=== PATIENT | male | born 1975 | race Caucasian/White ===

== ENCOUNTER 2017-01-27 05:16 | Emergency (ER) | payer BC, SELFPAY | END 2017-01-27 07:52 | disposition home or self-care (01) | PROVIDERS: Emergency Provider Emergency Medicine; Family Provider Family Medicine; Visit Provider Emergency Medicine | DX: R10.11 Right upper quadrant pain (principal); Z90.49 Acquired absence of other specified parts of digestive tract; Z87.891 Personal history of nicotine dependence | CPT/HCPCS: 71275; 74177; 80053; 80305; 81001; 82150; 83690; 85025; 87086; 96360; 99283 ==

== ENCOUNTER 2017-02-01 17:26 | Emergency (ER) | payer BC, SELFPAY | END 2017-02-01 18:17 | disposition left against medical advice (07) | PROVIDERS: Emergency Provider Nurse Practitioner Family; Family Provider Family Medicine; Visit Provider Nurse Practitioner Family | DX: Z53.29 Procedure and treatment not carried out because of patient's decision for other reasons (principal) | CPT/HCPCS: 99211 ==

== ENCOUNTER → 2017-12-01 08:59 | Outpatient (CLI) | payer BC, SELFPAY ==
--- NOTE | 2017-12-01 09:05 | NVE_ITS ---
Venous Exam Indications: 729.5 Pain in limb. IMPRESSIONS 1. There is no evidence of significant Reflux. 2. No evidence of deep or superficial vein thrombosis involving the left lower extremity Left lower extremity venous duplex evaluation. Doppler flow study including spectral analysis, color and ring scale imaging. Location: Vascular laboratory. Patient status: Outpatient. CRITICAL FINDINGS - Reported to: Marlen - Read back and verified. - 12/01/17 - 1030 - None Tables: Venous flow and imaging: + +-------+ + Location Overall Flow properties + +-------+ + Left common femoral Patent Normal phasicity; spontaneous; normal augmentation; compressible + +-------+ + Left saphenofemoral junction Patent Compressible + +-------+ + Left profunda femoral Patent Compressible + +-------+ + Left femoral Patent Normal phasicity; spontaneous; normal augmentation; compressible + +-------+ + Left greater saphenous Patent Normal phasicity; spontaneous; normal augmentation; compressible + +-------+ + Left popliteal Patent Normal phasicity; spontaneous; normal augmentation; compressible + +-------+ + Left posterior tibial Patent Compressible + +-------+ + Left peroneal Patent Compressible + +-------+ + Left gastrocnemius Patent Compressible + +-------+ + Left soleal Patent Compressible + +-------+ + (Report amended ) Electronically signed by: Igor Baig [id number]
== END ==
PROVIDERS: Family Provider Family Medicine; PCP Family Medicine; Visit Provider Nurse Practitioner Family
DX: M79.605 Pain in left leg (principal)
CPT/HCPCS: 93971

== ENCOUNTER → 2019-07-26 12:21 | Outpatient (CLI) | payer BC, SELFPAY ==
--- NOTE | 2019-07-26 12:29 | XR_ITS ---
PROCEDURE: XR RIBS RT MIN 3V W CXR1V CLINICAL INDICATION: RT RIB PAIN Right-sided chest pain COMPARISON: CTAC CTA-CHEST from 01/27/2017 FINDINGS: Multiple views of the right ribs show no obvious fracture. No lytic or blastic change. Consider follow-up in 7-[address] with 3D reformats if pain persists Frontal view of the chest shows no acute finding IMPRESSION: No acute findings. Dictated by: Igor Baig MD 07/26/2019 13:11 Electronically signed by Igor Baig MD in [facility] 07/26/2019 13:11
== END ==
PROVIDERS: PCP Family Medicine; Visit Provider Family Medicine
DX: R07.81 Pleurodynia (principal)
CPT/HCPCS: 71101

== ENCOUNTER → 2020-03-17 14:30 | Outpatient (CLI) | payer BC, SELFPAY ==
--- NOTE | 2020-03-17 14:38 | XR_ITS ---
PROCEDURE: XR FOOT LT MIN 3V CLINICAL INDICATION: LT FOOT INJURY,PAIN COMPARISON: No exams were available for comparison FINDINGS: No fracture or dislocation. No lytic or blastic change. There is normal mineralization. The joint spaces are well-preserved. No significant degenerative/arthritic changes. No erosive changes evident. Other findings:None. IMPRESSION: No acute findings. Dictated by: Igor Baig MD 03/17/2020 15:12 Igor Baig MD in [facility] 03/17/2020 15:12
== END ==
PROVIDERS: PCP Family Medicine; Visit Provider Nurse Practitioner Family
DX: M79.672 Pain in left foot (principal); S99.922A Unspecified injury of left foot, initial encounter
CPT/HCPCS: 73630

== ENCOUNTER → 2021-02-07 08:19 | Outpatient (CLI) | payer BC, SELFPAY ==
--- NOTE | 2021-02-07 08:25 | US_ITS ---
PROCEDURE: US ABDOMEN LIMITED CLINICAL INDICATION: RUQ PAIN,FATTY LIVER COMPARISON: US GB US GALLBLADDER (ABD LTD) from 01/10/[address] ABD PELVIS W/ CONTRAST from 01/27/2017 FINDINGS: PANCREAS: Unremarkable. No obvious mass or abnormal fluid collection. No ductal dilatation LIVER: Diffuse increased echogenicity of the liver with poor through transmission of sound consistent with hepatic steatosis. No focal liver lesion demonstrated. There is appropriate direction of blood flow within non dilated portal vein. RIGHT KIDNEY: Unremarkable. Normal size and echogenicity. No hydronephrosis GALLBLADDER: Status post cholecystectomy. Common bile duct is normal at 3 mm. IMPRESSION: Fatty liver. Status post cholecystectomy. Otherwise negative Dictated by: Igor Baig MD 02/07/2021 13:08 Igor Baig MD in [facility] 02/07/2021 13:08
== END ==
PROVIDERS: PCP Family Medicine; Visit Provider Nurse Practitioner Family
DX: R10.11 Right upper quadrant pain (principal); K76.0 Fatty (change of) liver, not elsewhere classified
CPT/HCPCS: 76705

== ENCOUNTER → 2021-03-20 08:01 | Outpatient (CLI) | payer BC, SELFPAY ==
[2021-03-20 08:41] LABS: Basophils # 0.1 K/mm3 (0-0.2); Basophils % 2.2 % (0.1-2.0); Eosinophils # 0.1 K/mm3 (0.0-0.4); Eosinophils % 2.7 % (0.1-12.0); Hematocrit 48.5 % (42.0-52.0); Lymphocytes % 39.6 % (10-50); Mean Corpuscular HGB Conc 32.9 g/dL (31.8-35.4); Mean Corpuscular Hemoglobin 30.7 pg (27.0-31.2); Mean Corpuscular Volume 93.5 fl (80-94); Mean Platelet Volume 10.1 fl (7.4-10.4); Monocytes # 0.3 K/mm3 (0.1-1.0); Monocytes % 5.2 % (1.7-9.3); Neutrophils # 2.5 K/mm3 (1.8-7.8); Neutrophils % 50.4 % (37.0-80.0); Platelet Count 195 K/mm3 (142-424); Red Blood Count 5.19 M/mm3 (4.60-6.20); Red Cell Distribution Width 13.8 % (11.5-17.5); White Blood Count 4.9 K/mm3 (4.8-10.8)
[2021-03-20 09:44] LABS: Chloride 101 mmol/L (98-107); Sodium 137 mmol/L (136-145)
[2021-03-20 09:47] LABS: Alanine Aminotransferase 33 U/L (12-78); Alkaline Phosphatase 43 U/L (38-126); Aspartate Amino Transferase 32 U/L (17-59); Bilirubin,Total 1.1 mg/dl (0.2-1.3); Blood Urea Nitrogen 17 mg/dl (9-20); Calcium 9.6 mg/dl (8.4-10.2); Carbon Dioxide 31 mmol/L (22.0-30.0); Estimated Glomerular Filt Rate 90 ml/min (>60); GFR (African American) 109 ML/MIN (>60); Glucose 93 mg/dl (74-100)
[2021-03-20 10:07] LABS: Anion Gap 9.8 mEq/L (5-15); Potassium 4.8 mmoL/L (3.5-5.1)
[2021-03-20 10:09] LABS: Albumin Level 4.8 g/dl (3.5-5.0); Albumin/Globulin Ratio 2.3 (1.1-1.8); Globulin 2.1 g/dL (1.3-3.2); Total Protein,Serum 6.9 g/dl (6.3-8.2)
[2021-03-22 23:07] LABS: ALT (SGPT) P5P 36 IU/L (0-55); AST (SGOT) P5P 26 IU/L (0-40); Alpha 2-Macroglobulins, Qn 112 mg/dL (110-276); Apolipoprotein A-1 117 mg/dL (101-178); Bilirubin, Total 0.8 mg/dL (0.0-1.2); Cholesterol, Total 133 mg/dL (100-199); Fibrosis Score 0.26 (0.00-0.21); Fibrosis Stage F0-F1 (.); GGT 13 IU/L (0-65); Glucose 94 mg/dL (65-99); Haptoglobin 22 mg/dL (23-355); Triglycerides 165 mg/dL (0-149)
== END ==
PROVIDERS: PCP Family Medicine; Visit Provider Nurse Practitioner Family
DX: K76.0 Fatty (change of) liver, not elsewhere classified (principal)
CPT/HCPCS: 36415; 80053; 85025

== ENCOUNTER → 2021-06-11 16:21 | Outpatient (CLI) | payer BC, SELFPAY ==
[2021-06-11 18:06] LABS: Alanine Aminotransferase 33 U/L (12-78); Albumin Level 4.6 g/dl (3.5-5.0); Alkaline Phosphatase 49 U/L (38-126); Aspartate Amino Transferase 62 U/L (17-59); Bilirubin,Indirect 1.1 mg/dL (0.0-0.9); Bilirubin,Total 1.1 mg/dl (0.2-1.3); Bilirubin,Unconjugated 1.1 mg/dL (0.0-1.1); Total Protein,Serum 6.8 g/dl (6.3-8.2)
== END ==
PROVIDERS: Visit Provider Nurse Practitioner Family
DX: K76.0 Fatty (change of) liver, not elsewhere classified (principal)
CPT/HCPCS: 36415; 80076

== ENCOUNTER → 2022-01-01 08:29 | Outpatient (CLI) | payer BC, SELFPAY ==
[2022-01-01 10:24] LABS: Alanine Aminotransferase 45 U/L (12-78); Albumin Level 4.3 g/dl (3.5-5.0); Alkaline Phosphatase 52 U/L (38-126); Aspartate Amino Transferase 62 U/L (17-59); Bilirubin,Direct 0.1 mg/dl (0.0-0.4); Bilirubin,Indirect 0.7 mg/dL (0.0-0.9); Bilirubin,Total 0.8 mg/dl (0.2-1.3); Bilirubin,Unconjugated 0.7 mg/dL (0.0-1.1); Total Protein,Serum 6.6 g/dl (6.3-8.2)
== END ==
PROVIDERS: PCP Internal Medicine Adolescent Medicine; Visit Provider Nurse Practitioner Family
DX: K76.0 Fatty (change of) liver, not elsewhere classified (principal)
CPT/HCPCS: 36415; 80076

== ENCOUNTER → 2022-06-07 07:54 | Outpatient (CLI) | payer BC, SELFPAY ==
[2022-06-07 08:57] LABS: Alanine Aminotransferase 26 U/L (12-78); Albumin Level 4.3 g/dl (3.5-5.0); Alkaline Phosphatase 44 U/L (38-126); Aspartate Amino Transferase 27 U/L (17-59); Bilirubin,Indirect 0.7 mg/dL (0.0-0.9); Bilirubin,Total 0.7 mg/dl (0.2-1.3); Bilirubin,Unconjugated 0.8 mg/dL (0.0-1.1); Total Protein,Serum 6.5 g/dl (6.3-8.2)
== END ==
PROVIDERS: PCP Internal Medicine Adolescent Medicine; Visit Provider Nurse Practitioner Family
DX: K76.0 Fatty (change of) liver, not elsewhere classified (principal)
CPT/HCPCS: 36415; 80076

== ENCOUNTER 2023-06-05 07:09 | Outpatient (CLI) | payer BC, SELFPAY ==
[2023-06-05 08:11] LABS: Alanine Aminotransferase 24 U/L (12-78); Albumin Level 4.2 g/dl (3.5-5.0); Alkaline Phosphatase 43 U/L (38-126); Aspartate Amino Transferase 25 U/L (17-59); Bilirubin,Direct 0.1 mg/dl (0.0-0.4); Bilirubin,Indirect 0.8 mg/dL (0.0-0.9); Bilirubin,Total 0.9 mg/dl (0.2-1.3); Bilirubin,Unconjugated 0.7 mg/dL (0.0-1.1); Total Protein,Serum 6.4 g/dl (6.3-8.2)
== END 2023-06-05 23:59 | disposition home or self-care (01) ==
LOC: LAB 07:09
PROVIDERS: PCP Internal Medicine Adolescent Medicine; Visit Provider Nurse Practitioner Family
DX: K76.0 Fatty (change of) liver, not elsewhere classified (principal); Z12.11 Encounter for screening for malignant neoplasm of colon
CPT/HCPCS: 36415; 80076

== ENCOUNTER 2024-05-11 13:32 | Emergency (ER) | payer OTHER, SELFPAY ==
--- NOTE | 2024-05-11 13:39 | XR_ITS ---
FINAL REPORT CLINICAL HISTORY: Fall on to knees COMPARISON: None FINDINGS: LEFT KNEE Three views demonstrate no acute fracture or dislocation. The joint spaces appear normal. No acute soft tissue abnormality is seen. IMPRESSION: No acute bony abnormality. Reviewed, Interpreted and Dictated by Carlota Porras MD Transcribed by Jenny Cifuentes Authenticated and [facility]
--- NOTE | 2024-05-11 13:39 | XR_ITS ---
FINAL REPORT CLINICAL HISTORY: Fall on to knees COMPARISON: None FINDINGS: RIGHT KNEE Three views demonstrate no acute fracture or dislocation. The joint spaces appear normal. No acute soft tissue abnormality is seen. IMPRESSION: No acute bony abnormality. Reviewed, Interpreted and Dictated by Carlota Porras MD Transcribed by Jenny Cifuentes Authenticated and [facility]
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
[2024-05-11 13:40] VITALS: BP 153/101; PULSE 100; RESP 15; TEMP 36.9; O2SAT 96; BMI 32.5
[2024-05-11 14:31] VITALS: BP 150/68; PULSE 98; RESP 15; TEMP 36.6; O2SAT 97
== END 2024-05-11 14:32 | disposition home or self-care (01) ==
PROVIDERS: Emergency Provider Emergency Medicine; PCP Internal Medicine Adolescent Medicine
DX: M25.561 Pain in right knee (principal); W19.XXXA Unspecified fall, initial encounter
CPT/HCPCS: 73562; 99283

== ENCOUNTER 2024-10-05 09:09 | Outpatient (CLI) | payer BC, SELFPAY ==
--- NOTE | 2024-10-05 09:24 | XR_ITS ---
FINAL REPORT CLINICAL HISTORY: ACUTE PAIN LT FOOT FINDINGS: AP, oblique and lateral views of the left foot were obtained. There is no prior exam for comparison. There is no acute fracture or dislocation. The joint spaces are preserved. Soft tissues are unremarkable. IMPRESSION: No acute osseous abnormality of the left foot. Reviewed, Interpreted and Dictated by Danay Becker MD Transcribed by Stella Arceo Authenticated and [facility]
[2024-10-05 09:51] LABS: Hematocrit 43.3 % (42.0-52.0); Hemoglobin 15.5 g/dL (14.1-18.0); Immature Granulocytes % 0.4 %; Mean Corpuscular HGB Conc 35.8 g/dL (31.8-35.4); Mean Corpuscular Hemoglobin 30.9 pg (27.0-31.2); Mean Corpuscular Volume 86.4 fl (80-94); Nucleated Red Blood Cells % 0 %; Platelet Count 206 K/mm3 (142-424); Red Blood Count 5.01 M/mm3 (4.60-6.20); Red Cell Distribution Width-SD 39.6 fL; White Blood Count 5.0 K/mm3 (4.8-10.8)
[2024-10-05 10:09] LABS: Albumin Level 4.7 g/dl (3.5-5.0); Chloride 107 mmol/L (98-107)
[2024-10-05 10:10] LABS: Potassium 4.3 mmoL/L (3.5-5.1); Sodium 141 mmol/L (136-145)
[2024-10-05 10:12] LABS: Alanine Aminotransferase 30 U/L (12-78); Albumin/Globulin Ratio 2.0 (1.1-1.8); Alkaline Phosphatase 51 U/L (38-126); Anion Gap 12.3 mEq/L (5-15); Aspartate Amino Transferase 29 U/L (17-59); Bilirubin,Total 1.0 mg/dl (0.2-1.3); Blood Urea Nitrogen 12 mg/dl (9-20); Carbon Dioxide 26 mmol/L (22.0-30.0); Creatinine,Serum 0.70 mg/dl (0.66-1.25); Estimated Glomerular Filt Rate 119 ml/min (>60); GFR (African American) 144 ML/MIN (>60); Globulin 2.4 g/dL (1.3-3.2); Total Protein,Serum 7.1 g/dl (6.3-8.2)
[2024-10-05 10:13] LABS: Calcium 9.5 mg/dl (8.4-10.2); Cholesterol 170 mg/dl (140-200); Glucose 104 mg/dl (74-100); HDL Cholesterol 44 mg/dl (40-60); Magnesium 1.8 mg/dl (1.6-2.3); Triglycerides 141 mg/dl (30-150)
[2024-10-05 12:27] LABS: Uric Acid 5.4 mg/dl (3.5-8.5)
== END 2024-10-05 23:59 | disposition home or self-care (01) ==
PROVIDERS: PCP Internal Medicine Adolescent Medicine
DX: M79.672 Pain in left foot (principal); K76.0 Fatty (change of) liver, not elsewhere classified; R25.2 Cramp and spasm
CPT/HCPCS: 36415; 73630; 80053; 80061; 83735; 84550; 85025; 85651